=== PATIENT | male | born 1975 ===

== ENCOUNTER 2018-07-01 05:08 | Day surgery (SDC) | payer OTHER ==
[~2018-07-01] VITALS: Ht 175.3 cm; Wt 77.1 kg
[2018-07-01] VITALS (10 sets, daily range): BP systolic 101–135; BP diastolic 59–93
[~2018-07-01 05:08] MED LIST: NKM
[2018-07-01] MEDS ORDERED: oxyCONTIN 20mg tab ORAL ONE (06:00)
[2018-07-01] MEDS ORDERED: celeBREX 200mg Cap **SURGERY PATIENTS ONLY ORAL ONE (06:00)
[2018-07-01] MEDS ORDERED: ceFAZolin 1gm IVPB IVPB ONE ×2 (06:00)
[2018-07-01] MEDS ORDERED: LR 1000ml 1,000 ML IVLG SCH (06:44)
[2018-07-01] MEDS ORDERED: Meperidine 50mg/ml Inj(FOR RIGORS ONLY) IVP PRN (06:45)
[2018-07-01] MEDS ORDERED: fentaNYL 100 mcg/2 mL IV PRN (06:45)
[2018-07-01] MEDS ORDERED: Hydromorphone 0.5mg/0.5ml inj IVP PRN (06:45)
[2018-07-01] MEDS ORDERED: Atropine Sulfate 0.4mg/ml inj IVP PRN (06:45)
[2018-07-01] MEDS ORDERED: LORazepam Inj 2mg/ml 1ml IV PRN (06:45)
[2018-07-01] MEDS ORDERED: Ketorolac 30mg Inj IV PRN ×2 (06:45)
[2018-07-01] MEDS ORDERED: Norco 5mg/325mg tab ORAL PRN ×2 (06:45→07:30)
[2018-07-01] MEDS ORDERED: oxyCODONE HCL/Acetaminophen 5/325mg ORAL PRN (06:45)
[2018-07-01] MEDS ORDERED: Midazolam 2mg/2ml Inj IVP PRN (06:45)
[2018-07-01] MEDS ORDERED: DiphenhydrAMINE 50mg/ml Inj IVP PRN (06:45)
[2018-07-01] MEDS ORDERED: Acetaminophen (Non formulary) 100 ML IV ONE (06:45)
[2018-07-01] MEDS ORDERED: Metoclopramide 10mg/2ml Inj IVP PRN (06:45)
[2018-07-01] MEDS ORDERED: HYDROcodone/Acetamin 7.5/325 tab ORAL PRN (06:45)
--- NOTE | 2018-07-01 06:49 | Anethesia Preoperative Eval ---
Anesthesia Pre-op PMH/ROS General Date of Evaluation: Jul 01, 2018 Time of Evaluation: 07:11 Anesthesiologist: Kentrell ASA Score: ASA 2 Mallampati Score Class I : Soft palate, uvula, fauces, pillars visible Class II: Soft palate, uvula, fauces visible Class III: Soft palate, base of uvula visible Class IV: Only hard plate visible Mallampati Classification: Class I Surgeon: Avery Diagnosis: L Ankle Pain Surgical Procedure: L Ankle Arthroscopy Anesthesia History: none Family History: no anesthesia problems Allergies: Coded Allergies: No Known Allergies (Unverified , 06/30/18) Medications: see eMAR Patient NPO?: Yes Past Medical History Gastrointestinal/Genitourinary: Reports: other - Cirrohsis PSxH Narrative: R Leg Vein Stripping Anesthesia Pre-op Phys. Exam Physician Exam Last Vital Signs Date Time Temp Pulse Resp B/P (MAP) Pulse Ox O2 Delivery O2 Flow Rate FiO2 07/01/18 05:40 Room Air 07/01/18 05:38 97.9 52 18 112/74 98 Constitutional: NAD Neurologic: CN 2-12 intact Cardiovascular: RRR Respiratory: CTA Gastrointestinal: S/NT/ND Airway Exam Mallampati Score: Class I MO: full ROM: full Teeth: missing, intact Anesthesia Pre-op A/P Risk Assessment & Plan Assessment: ASA 2 Plan: GA Status Change Before Surgery: No Pre-Antibiotics Dru gram Ancef IV Given Within 1 Hr of Incision: Yes Time Given: 07:21 Aleksandr Pfeiffer MD Jul 01, 2018 06:49
--- NOTE | 2018-07-01 06:50 | Immediate Post-Op Evaluation ---
Immediate Post-Op Evalulation Immediate Post-Op Evalulation Procedure: L Ankle Arthroscopy Date of Evaluation: Jul 01, 2018 Time of Evaluation: 08:50 IV Fluids: 700 LR Blood Products: 0 Estimated Blood Loss: 7 Urinary Output: 0 Blood Pressure Systolic: 103 Blood Pressure Diastolic: 61 Pulse Rate: 57 Respiratory Rate: 16 O2 Sat by Pulse Oximetry: 100 Temperature (Fahrenheit): 97.3 Pain Score (1-10): 2 Nausea: No Vomiting: No Complications 0 Patient Status: awake, reacts, patent, extubated, none Hydration Status: adequate Dru Gram Ancef IV Given Within 1 Hr of Incision: Yes Time Given: 07:21 Aleksandr Pfeiffer MD Jul 01, 2018 06:50
--- NOTE | 2018-07-01 06:51 | 48 Hour Post Anesthesia Eval ---
Post Anesthesia Evaluation Procedure: L Ankle Arthroscopy Date of Evaluation: Jul 01, 2018 Time of Evaluation: 11:13 Blood Pressure Systolic: 124 0: 73 Pulse Rate: 56 Respiratory Rate: 18 Temperature (Fahrenheit): 98.2 O2 Sat by Pulse Oximetry: 100 Airway: patent Nausea: No Vomiting: No Pain Intensity: 2 Hydration Status: adequate Cardiopulmonary Status: Stable Mental Status/LOC: patient returned to baseline Follow-up Care/Observations: 0 Post-Anesthesia Complications: 0 Follow-up care needed: ready to discharge Aleksandr Pfeiffer MD Jul 01, 2018 06:51
[2018-07-01] MEDS ORDERED: Dexamethasone 4mg/ml vial ONE (06:52)
[2018-07-01] MEDS ORDERED: Propofol 200mg/20ml IV ONE ×2 (06:52→07:31)
[2018-07-01] MEDS ORDERED: Lidocaine 1% MPF 10mg/ml 5ml ONE (06:52)
[2018-07-01] MEDS ORDERED: Sodium Chloride 10ml vial INJ ONE (06:52)
[2018-07-01] MEDS ORDERED: NS Irrig 4000ml IRRIG ONE (07:00)
[2018-07-01] MEDS ORDERED: Sterile Water Irrig 1000ml IRRIG ONE (07:00)
[2018-07-01] MEDS ORDERED: LR 1000ml ONE (07:00)
[2018-07-01] MEDS ORDERED: Bupivacaine w/Epi 0.5% 30ml Vial INJ ONE (07:06)
[2018-07-01] MEDS ORDERED: HYDROmorphone 1mg/ml Carpuject SUBQ PRN (07:30)
[2018-07-01] MEDS ORDERED: D5 1/2NS 1,000 ML IV SCH (07:30)
[2018-07-01] MEDS ORDERED: Tylenol #3 tab (300mg/30mg) ORAL PRN (07:30)
--- NOTE | 2018-07-01 07:30 | Pre-Procedure Note/Attestation ---
Pre-Procedure Note/Attestation Complete Prior to Procedure Planned Procedure: left Procedure Narrative: ankle arthroscopy and debridement with deltoid ligament reconstruction Indications for Procedure Pre-Operative Diagnosis: left ankle pain Attestation I attest that I discussed the nature of the procedure; its benefits; risks and complications; and alternatives (and the risks and benefits of such alternatives ), prior to the procedure, with the patient (or the patient's legal billing customer service representative). I attest that, if there was a reasonable possibility of needing a blood transfusion, the patient (or the patient's legal billing customer service representative) was given the [facility] standardized written summary, pursuant to the Joshua Kina Blood Safety Act ([place] Health and Safety Code # 1645, as amended). I attest that I re-evaluated the patient just prior to the surgery and that there has been no change in the patient's H&P, except as documented below: Jacob Varela MD Jul 01, 2018 07:30
[2018-07-01] MEDS ORDERED: Lidocaine 1% Plain 30 ml INJ ONE (07:31)
--- NOTE | 2018-07-01 08:42 | Brief Operative Note ---
Immediate Post Operative Note Operative Note Pre-op Diagnosis: left ankle pain Procedure: left ankle scope, debridement, removal of metalic foreign body medially, and repair of partial deltoid ligament tear Post-op Diagnosis: same Post-op Diagnosis: same as pre-op Surgeon: anthony Strainer Tender: Sintia Anesthesia: general Specimen: yes Complications: none Condition: stable Fluids: 500 cc Estimated Blood Loss: minimal Drains: none Tourniquet time: 65 - min Implant(s) used?: No Jacob Varela MD Jul 01, 2018 08:42
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
== END 2018-07-01 12:25 | disposition home or self-care (01) ==
LOC: SUR 05:08 → EDSEX 07:00 → SUR 12:25
DX: S82.52XA Displaced fracture of medial malleolus of left tibia, initial encounter for closed fracture (principal); S93.422A Sprain of deltoid ligament of left ankle, initial encounter; M79.5 Residual foreign body in soft tissue; K74.60 Unspecified cirrhosis of liver
CPT/HCPCS: 27610; 27695; 29898; J0690; J1100; J1170; J2001; J2250; J2405; J2704; 94003; 94150